=== PATIENT | female | born 1960 | race Caucasian/White ===

== ENCOUNTER 2016-09-13 05:58 | Emergency (ER) | payer BC ==
[2016-09-13 06:03] VITALS: TEMP 97.7
[2016-09-13] MEDS ORDERED: ONDANSETRON 4 MG/2 ML VIAL ONE (06:14)
--- NOTE | 2016-09-13 06:22 | EDPHY ---
H & P Stated Complaint: EPIGASTRIC PAIN WOKE PT, HX OF OFF AND ON FOR MONTHS Time Seen by Provider: 09/13/16 06:08 HPI/ROS: HPI The patient presents with epigastric abdominal pain which began about 1 hour ago and came on suddenly. It is sharp in nature, severe, and improved within about 15 minutes. Is associated with nausea without any vomiting. She now has very little pain. It radiates toward her back. She has not had any fevers or chills, vomiting, diarrhea, dark or bloody stool. She has had episodes of this pain for the last few months, though this seems the most severe. She had a cholecystectomy in 1996 and she says this pain feels similar. She is currently being treated for an ear infection. REVIEW OF SYSTEMS Constitutional: No fever, no chills. Eyes: No discharge. ENT: No sore throat. Cardiovascular: No chest pain, no palpitations. Respiratory: No cough, no shortness of breath. Gastrointestinal: See HPI Genitourinary: No hematuria. Musculoskeletal: No back pain. Skin: No rashes. Neurological: No headache. PMHx: Status post cholecystectomy PHYSICAL General Appearance: Alert, no distress Eyes: Pupils equal and round no pallor or injection ENT, Mouth: Mucous membranes moist Respiratory: There are no retractions, lungs are clear to auscultation Cardiovascular: Regular rate and rhythm Gastrointestinal: Abdomen is soft and with tenderness in epigastrium, no masses , bowel sounds normal Neurological: A&O, moves all extremities Skin: Warm and dry, no rashes Musculoskeletal: Neck is supple non tender Extremities: symmetrical, full range of motion Psychiatric: Patient is oriented X 3, there is no agitation Source: Patient Exam Limitations: No limitations - Personal History Current Tetanus/Diphtheria Vaccine: Yes Current Tetanus Diphtheria and Acellular Pertussis (TDAP): Yes - Medical/Surgical History Hx Asthma: Yes Hx Chronic Respiratory Disease: No Hx Diabetes: No Hx Cardiac Disease: No Hx Renal Disease: No Hx Cirrhosis: No Hx Alcoholism: No Hx HIV/AIDS: No Hx Splenectomy or Spleen Trauma: No Other PMH: GALLBLADDER REMOVED, ASTHMA WITH EXERCISE, HIST. HYPOTHYROID - Social History Smoking Status: Never smoked Constitutional: Initial Vital Signs Temperature (C) 36.5 C 09/13/16 06:00 Heart Rate 70 09/13/16 06:00 Respiratory Rate 16 09/13/16 06:00 Blood Pressure 93/74 L 09/13/16 06:00 O2 Sat (%) 95 09/13/16 06:00 O2 Delivery Mode Room Air Allergies/Adverse Reactions: doxycycline Allergy (Verified 09/13/16 06:03) meperidine [From Demerol] Allergy (Verified 09/13/16 06:03) Home Medications: Medication Instructions Recorded Amoxicillin [Moxatag] 875 mg PO 09/13/16 Codeine Phosphate/Guaifenesin 118 ml PO 09/13/16 [Virtussin AC Liquid] Omeprazole 20 mg PO DAILY #30 capsule. 09/13/16 Thyroid,Pork [[place] Thyroid] 240 mg PO 09/13/16 Medical Decision Making Differential Diagnosis: This is a 56-year-old female status post remote cholecystectomy who presents with epigastric abdominal pain intermittently for the last few months, now worse tonight. On exam, she has normal vital signs and is generally well- appearing. She has tenderness in her epigastrium. She has not had any dark or bloody stools. Differential diagnosis includes gastritis, GERD, less likely pancreatitis or hepatitis, choledocholithiasis. Labs were performed and were unremarkable. The patient is feeling better with no abdominal pain. She did report that she has been taking aspirin over the last few days for her ear pain and this may be contributing to her symptoms. I have advised her to avoid NSAIDs and aspirin. I have discussed avoiding acidic foods. I will discharge her with a prescription for a PPI. - Data Points Laboratory Results: Laboratory Results 09/13/16 06:20 09/13/16 06:20 09/13/16 09/13/16 06:20 06:20 WBC 7.52 10^3/uL 10^3/uL (3.80-9.50) RBC 4.77 10^6/uL 10^6/uL (4.18-5.33) Hgb 15.2 g/dL g/dL (12.6-16.3) Hct 44.6 % % (38.0-47.0) MCV 93.5 fL fL (81.5-99.8) MCH 31.9 pg pg (27.9-34.1) MCHC 34.1 g/dL g/dL (32.4-36.7) RDW 13.3 % % (11.5-15.2) Plt Count 204 10^3/uL 10^3/uL (150-400) MPV 11.4 fL fL (8.7-11.7) Neut % (Auto) 68.5 % % (39.3-74.2) Lymph % (Auto) 19.1 % % (15.0-45.0) [place] % (Auto) 8.1 % % (4.5-13.0) Eos % (Auto) 3.2 % % (0.6-7.6) Baso % (Auto) 0.7 % % (0.3-1.7) Nucleat RBC Rel Count 0.0 % % (0.0-0.2) Absolute Neuts (auto) 5.15 10^3/uL 10^3/uL (1.70-6.50) Absolute Lymphs (auto) 1.44 10^3/uL 10^3/uL (1.00-3.00) Absolute Monos (auto) 0.61 10^3/uL 10^3/uL (0.30-0.80) Absolute Eos (auto) 0.24 10^3/uL 10^3/uL (0.03-0.40) Absolute Basos (auto) 0.05 10^3/uL 10^3/uL (0.02-0.10) Absolute Nucleated RBC 0.00 10^3/uL 10^3/uL (0-0.01) Immature Gran % 0.4 % % (0.0-1.1) Immature Gran # 0.03 10^3/uL 10^3/uL (0.00-0.10) Sodium 139 mEq/L mEq/L (134-144) Potassium 4.4 mEq/L mEq/L (3.5-5.2) Chloride 108 mEq/L mEq/L (97-110) Carbon Dioxide 20 mEq/l L mEq/l (22-31) Anion Gap 11 mEq/L mEq/L (8-16) BUN 12 mg/dL mg/dL (7-23) Creatinine 0.6 mg/dL mg/dL (0.6-1.0) Estimated GFR > 60 Glucose 108 mg/dL H mg/dL (70-100) Calcium 9.3 mg/dL mg/dL (8.5-10.4) Total Bilirubin 0.6 mg/dL mg/dL (0.1-1.4) Conjugated Bilirubin 0.5 mg/dL mg/dL (0.0-0.5) Unconjugated Bilirubin 0.1 mg/dL mg/dL (0.0-1.1) AST 30 IU/L IU/L (14-46) ALT 30 IU/L IU/L (9-52) Alkaline Phosphatase 89 IU/L IU/L (38-126) Total Protein 6.6 g/dL g/dL (6.3-8.2) Albumin 3.8 g/dL g/dL (3.5-5.0) Lipase 106.0 IU/L IU/L (23-300) Departure - Departure Disposition: Home, Routine, Self-Care Clinical Impression: Dyspepsia Condition: Good Instructions: Gastritis (ED), Diet for Stomach Ulcers and Gastritis (ED) Additional Instructions: Please try to eat a bland diet and avoid any spicy, greasy, acidic foods. You should avoid eating anything 2 hours before bedtime. Avoid ibuprofen, Aleve to see if this helps her symptoms. Prescriptions: Omeprazole 20 mg PO DAILY #30 capsule.
[2016-09-13 06:30] LABS: % IMMATURE GRANULYOCYTES 0.4 % (0.0-1.1); ABSOLUTE IMMATURE GRANULOCYTES 0.03 10^3/uL (0.00-0.10); ADD DIFF? NO; ADD MORPH? NO; ADD SCAN? NO; ATYPICAL LYMPHOCYTE FLAG 10 (0-99); FRAGMENT RBC FLAG 0 (0-99); HEMATOCRIT 44.6 % (38.0-47.0); HEMOGLOBIN 15.2 g/dL (12.6-16.3); LEFT SHIFT FLG 0 (0-99); LIPEMIA HEMOLYSIS FLAG 90 (0-99); MEAN CELL HEMOGLOBIN 31.9 pg (27.9-34.1); MEAN CELL HEMOGLOBIN CONCENTR. 34.1 g/dL (32.4-36.7); MEAN CELL VOLUME 93.5 fL (81.5-99.8); MEAN PLATELET VOLUME 11.4 fL (8.7-11.7); PLATELET CLUMPS FLAG 0 (0-99); PLATELET COUNT 204 10^3/uL (150-400); RED BLOOD CELL COUNT 4.77 10^6/uL (4.18-5.33); RED CELL DISTRIBUTION WIDTH 13.3 % (11.5-15.2)
[2016-09-13 06:51] LABS: ALANINE AMINOTRANSFERASE 30 IU/L (9-52); ALBUMIN 3.8 g/dL (3.5-5.0); ALKALINE PHOSPHATASE 89 IU/L (38-126); ANION GAP 11 mEq/L (8-16); ASPARTATE AMINOTRANSFERASE 30 IU/L (14-46); BILIRUBIN,TOTAL 0.6 mg/dL (0.1-1.4); BILIRUBIN-CONJUGATED 0.5 mg/dL (0.0-0.5); BILIRUBIN-UNCONJUGATED 0.1 mg/dL (0.0-1.1); CALCIUM 9.3 mg/dL (8.5-10.4); CARBON DIOXIDE 20 mEq/l (22-31); CHLORIDE 108 mEq/L (97-110); CREATININE 0.6 mg/dL (0.6-1.0); GLOMERULAR FILTRATION RATE > 60; GLUCOSE 108 mg/dL (70-100); POTASSIUM 4.4 mEq/L (3.5-5.2); SODIUM 139 mEq/L (134-144); TOTAL PROTEIN 6.6 g/dL (6.3-8.2)
[2016-09-13 07:19] VITALS: BP 97/57; PULSE 62; RESP 18; O2SAT 91
== END 2016-09-13 07:19 | disposition home or self-care (01) ==
DX: R10.13 Epigastric pain (principal); J45.909 Unspecified asthma, uncomplicated; R11.0 Nausea; Z90.49 Acquired absence of other specified parts of digestive tract
CPT/HCPCS: J2405

== ENCOUNTER 2016-11-18 23:26 | Emergency (ER) | payer OTHER, BC ==
[2016-11-18 23:35] VITALS: TEMP 98.2
[2016-11-18] MEDS ORDERED: TDAP ADULT 0.5 ML INJ (BOOSTRIX) IM ONE (23:49)
[2016-11-18] MEDS ORDERED: IBUPROFEN 600 MG TAB PO ONE ×2 (23:49)
--- NOTE | 2016-11-18 23:52 | EDPHY ---
H & P Time Seen by Provider: 11/18/16 23:33 HPI/ROS: CHIEF COMPLAINT: Right ankle pain HISTORY OF PRESENT ILLNESS: This otherwise healthy 56-year-old female, presents to the emergency department after an inversion ankle injury. The patient complains of pain to the lateral ankle and swelling. The patient has an abrasion to her left knee. She denies knee pain. Tetanus is not up-to-date. Patient is unable to bear weight on this right ankle due to pain. The patient has no other complaints, denies numbness or tingling to affected limb. Smoking Status: Never smoked Physical Exam: General appearance: alert no distress Right ankle: There is swelling, ecchymosis and tenderness over the lateral ankle . TTP to ATFL and distal fibula. No medial tenderness. No tenderness over the achilles tendon. The foot is non-tender without swelling. No TTP over 5th metatarsal. Neurologic exam: The patient has normal sensation and motor function distal to the injury. Vascular exam: Normal pulses and capillary refill in the foot Skin: Superficial abrasion to left knee Constitutional: Initial Vital Signs Temperature (C) 36.8 C 11/18/16 23:31 Heart Rate 57 L 11/18/16 23:31 Respiratory Rate 14 11/18/16 23:31 Blood Pressure 135/80 H 11/18/16 23:31 O2 Sat (%) 94 11/18/16 23:31 O2 Delivery Mode Room Air Allergies/Adverse Reactions: doxycycline Allergy (Verified 09/13/16 06:03) meperidine [From Demerol] Allergy (Verified 09/13/16 06:03) Home Medications: Medication Instructions Recorded Amoxicillin [Moxatag] 875 mg PO 09/13/16 Codeine Phosphate/Guaifenesin 118 ml PO 09/13/16 [Virtussin AC Liquid] Omeprazole 20 mg PO DAILY #30 capsule. 09/13/16 Thyroid,Pork [[place] Thyroid] 240 mg PO 09/13/16 MDM/Departure - MDM Imaging Results: Ankle x-ray independently reviewed by me, lateral soft tissue swelling, no evidence of fracture. Imaging: I viewed and interpreted images myself Medications Given: Discontinued Medications Diphtheria/Tetanus/Acell Pertussis (Boostrix) 0.5 ml IM .ONCE ONE Stop: 11/18/16 23:50 Last Admin: 11/19/16 00:13 Dose: 0.5 ml Ibuprofen (Motrin) 600 mg PO EDNOW ONE Stop: 11/18/16 23:50 Last Admin: 11/19/16 00:08 Dose: 600 mg - Depart Disposition: Home, Routine, Self-Care Clinical Impression: Right ankle sprain Qualifiers: Encounter type: initial encounter Involved ligament of ankle: other ligament Qualified Code(s): S93.491A - Sprain of other ligament of right ankle, initial encounter Abrasion, left knee, initial encounter Qualifiers: Encounter type: initial encounter Qualified Code(s): S80.212A - Abrasion, left knee, initial encounter Condition: Good Instructions: Ankle Sprain (ED), Hydrocodone/Acetaminophen (By mouth) Additional Instructions: Rest, ice, elevate. Use crutches for ambulation. Take 600 mg of ibuprofen every 8 hours with food as needed for pain, take [place] for severe pain. Follow up with orthopedist at 1st available appointment, call Sunday to schedule this. Return to the emergency department for any numbness or tingling to your foot, pain that is not controlled, new symptoms or concerns. Stand Alone Forms: Work Comp Follow Up Referrals: Joe Chen MD [Medical Doctor] - As per Instructions (Orthopedist on-call )
[2016-11-19] MEDS ORDERED: HYDROCOD/APAP 5/325 PREPACK#6 BTL TAKEHOME ONE (00:50)
[2016-11-19 01:20] VITALS: BP 108/68; PULSE 68; RESP 16; O2SAT 96
== END 2016-11-19 01:25 | disposition home or self-care (01) ==
DX: S93.491A Sprain of other ligament of right ankle, initial encounter (principal); S80.212A Abrasion, left knee, initial encounter; Z23 Encounter for immunization; X58.XXXA Exposure to other specified factors, initial encounter
CPT/HCPCS: L4386

== ENCOUNTER 2016-12-01 11:38 | Emergency (ER) | payer OTHER, BC ==
[2016-12-01] MEDS ORDERED: OXYCODONE/APAP 5/325 TAB PO ONE (12:07)
--- NOTE | 2016-12-01 12:43 | EDPHY ---
H & P Stated Complaint: sprained ankle 11/18 in boot now with pain bilat hips back / neck shoulders HPI/ROS: CHIEF COMPLAINT: Multiple areas of pain, fall 2 weeks ago HISTORY OF PRESENT ILLNESS: Patient complains of pain in the upper back, lower neck, shoulders, hips and low back. This is after falling 2 weeks ago while stepping off of a piece of equipment at work. She sustained a sprain to the right ankle to time. She has been in a Torin boot and being seen by a [facility] for worker's Comp, as well as undergoing physical therapy for the ankle. She says all Sunday after physical therapy, she began to have more pain in the upper back, lower neck, shoulders, low back and pelvis. This pain radiates out from the middle of her back. [id number] pain at 1st now severe. No numbness or tingling. No weakness of the lower extremities. No saddle anesthesia. No incontinence of bowel or bladder. No retention of bowel or bladder. She has not yet had imaging of the spine at any level. No other associated complaints or modifying factors. REVIEW OF SYSTEMS: Ten systems reviewed and are negative unless otherwise noted in the HPI PAST MEDICAL HISTORY: hypoThyroid SOCIAL HISTORY: Nonsmoker. Works for [email or web address] FAMILY HISTORY: Noncontributory EXAMINATION General Appearance: Alert, no distress Head: normocephalic, atraumatic Eyes: Pupils equal and round, no conjunctival pallor or injection ENT, Mouth: Mucous membranes moist. Uvula midline. Neck: Normal inspection, supple, non-tender Respiratory: Lungs are clear to auscultation Cardiovascular: Regular rate and rhythm. No murmur. Pulses intact distally. Gastrointestinal: Abdomen is soft and nontender Back: Mild soft tissue tenderness of the lumbar, thoracic and cervical spine. There is no bony tenderness at each level. No crepitus, step-off or deformity. Range of motion is limited due to pain. Neurological: GCS 15. Cranial nerves 2-12 grossly intact. A&O, nonfocal, antalgic but steady gait. Strength is symmetric in all 4 limbs. Patellar reflexes symmetric. Skin: Warm and dry, no rash. No lacerations abrasions or contusions. Extremities: Nontender, no pedal edema Psychiatric: Mood and affect normal DIFFERENTIAL DIAGNOSES: Including but not limited to myofascial strain, sprain, fracture, dislocation, whiplash MDM: 12:05 p.m. Pain in multiple location 2 weeks after a mechanical fall with right ankle sprain. This is most recently exacerbated by physical therapy on Sunday. No evidence of acute cord compression or cauda equina. X-rays have been ordered of the areas of concern. She is in no acute distress 1:20 p.m. X-rays of spine reveal possible fracture of anterior portion of C5. There is no vertebral body fracture or obvious swelling. I re-examined the patient. She has no bony, midline tenderness of the neck. I have ordered an MRI to further delineate. She also has noted a age indeterminate, possible fractures of the endplates of T3 and L3. I have re-examined the patient and she does not have any point bony tenderness of these regions. The tenderness of these regions is muscular. No further imaging has been ordered of the thoracic or lumbar spine at this time. She remains awake and alert, neuro intact. 3:00 p.m. Notified by radiologist Dr. Davies. MRI of the cervical spine reveals no acute findings. The possible fracture noted on the plain film of C5 is not appreciated on the MRI. There is no acute finding otherwise. Furthermore, the MRI was able to visualize T3, and this is a chronic injury. I have re-evaluated the patient. She is resting comfortably with significantly improved pain following the Percocet. She remains neurovascular intact. She is discharged home stable condition. She will follow up with her worker's compensation Clinic. She is comfortable with this plan and discharged home stable condition. SUPERVISION: This patient was independently evaluated without direct examination by the attending physician. Case was discussed with attending physician. Source: Patient Exam Limitations: No limitations - Personal History Current Tetanus/Diphtheria Vaccine: Yes - Medical/Surgical History Hx Asthma: Yes Hx Chronic Respiratory Disease: No Hx Diabetes: No Hx Cardiac Disease: No Hx Renal Disease: No Hx Cirrhosis: No Hx Alcoholism: No Hx HIV/AIDS: No Hx Splenectomy or Spleen Trauma: No Other PMH: GALLBLADDER REMOVED, ASTHMA WITH EXERCISE, HIST. HYPOTHYROID - Social History Smoking Status: Never smoked Constitutional: Initial Vital Signs Temperature (C) 97.5 F 12/01/16 11:43 Heart Rate 64 12/01/16 11:43 Respiratory Rate 18 12/01/16 11:43 Blood Pressure 127/88 H 12/01/16 11:43 O2 Sat (%) 99 12/01/16 11:43 O2 Delivery Mode Room Air Allergies/Adverse Reactions: doxycycline Allergy (Verified 12/01/16 11:43) meperidine [From Demerol] Allergy (Verified 12/01/16 11:43) Home Medications: Medication Instructions Recorded Omeprazole 20 mg PO DAILY #30 capsule. 09/13/16 Thyroid,Pork [[place] Thyroid] 240 mg PO 09/13/16 CYCLOBENZAPRINE HCL [Flexeril] 5 mg PO TIDPRN PRN #15 tab 12/01/16 Estradiol 12/01/16 oxyCODONE HCL/ACETAMINOPHEN 1 each PO Q4-6PRN PRN #14 tablet 12/01/16 [Percocet 5-325 mg Tablet] Medical Decision Making - Diagnostics Imaging Results: Imaging Impressions Cervical Spine X-Ray 12/01/16 12:07 Impression: Indeterminate age small chip (versus degenerative ossification) adjacent to the anterior inferior corner of C5. 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 Also, if there is concern for instability, lateral flexion extension views would be useful. Lumbar Spine X-Ray 12/01/16 12:07 Impression: Minimal L3 compression of unknown age. 2. Thoracic spine, 2 standing views History: Pain post fall 2 weeks ago Comparison: None Findings: Alignment is anatomic. There is a mild superior endplate compression deformity of T3, of unknown age. There is no paraspinal stripe widening. Thoracic disk spaces maintain normal height. No other posttraumatic abnormality is identified. Impression: Indeterminate age T3 compression. Thoracic Spine X-Ray 12/01/16 12:07 Impression: Minimal L3 compression of unknown age. 2. Thoracic spine, 2 standing views History: Pain post fall 2 weeks ago Comparison: None Findings: Alignment is anatomic. There is a mild superior endplate compression deformity of T3, of unknown age. There is no paraspinal stripe widening. Thoracic disk spaces maintain normal height. No other posttraumatic abnormality is identified. Impression: Indeterminate age T3 compression. - Data Points Medications Given: Discontinued Medications Oxycodone/Acetaminophen (Percocet 5/325) 1 tab PO EDNOW ONE Stop: 12/01/16 12:08 Last Admin: 12/01/16 12:12 Dose: 1 tab Departure - Departure Disposition: Home, Routine, Self-Care Clinical Impression: Cervical myofascial strain Qualifiers: Encounter type: initial encounter Qualified Code(s): S16.1XXA - Strain of muscle, fascia and tendon at neck level, initial encounter Low back strain Qualifiers: Encounter type: initial encounter Qualified Code(s): S39.012A - Strain of muscle, fascia and tendon of lower back, initial encounter Condition: Good Instructions: Muscle Strain (ED) Additional Instructions: 1. Medications as discussed as needed 2. Follow up with [facility] for your ongoing worker's compensation care 3. Return to the ER for any worsening back pain, saddle anesthesia, incontinence of bowel or bladder, retention of bowel or bladder, lower extremity weakness, upper extremity weakness Referrals: YEHUDA OLMOS MD [Other] - As per Instructions Stand Alone Forms: Work Comp Follow Up Prescriptions: CYCLOBENZAPRINE HCL [Flexeril] 5 mg PO TIDPRN PRN #15 tab PRN Reason: Spasms oxyCODONE HCL/ACETAMINOPHEN [Percocet 5-325 mg Tablet] 1 each PO Q4-6PRN PRN # 14 tablet PRN Reason: Pain, Breakthrough
[2016-12-01 15:21] VITALS: BP 114/89; PULSE 61; RESP 16; TEMP 97.7; O2SAT 95
== END 2016-12-01 15:21 | disposition home or self-care (01) ==
DX: S16.1XXA Strain of muscle, fascia and tendon at neck level, initial encounter (principal); S39.012A Strain of muscle, fascia and tendon of lower back, initial encounter; J45.909 Unspecified asthma, uncomplicated; W19.XXXA Unspecified fall, initial encounter; Y93.89 Activity, other specified

== ENCOUNTER 2017-08-12 10:31 | Emergency (ER) | payer OTHER, BC ==
--- NOTE | 2017-08-12 12:25 | EDPHY ---
H & P Stated Complaint: increased pain and swelling bilat leg r>l Time Seen by Provider: 08/12/17 12:25 HPI/ROS: CHIEF COMPLAINT: Right knee and leg pain HISTORY OF PRESENT ILLNESS: This is a generally healthy 57-year-old female who underwent surgery on her right ankle on 04/17/2017 (reattachment of ligaments after trauma). She presents today after noting atraumatic swelling of her right leg yesterday the swelling extended from her lower thigh to the mid calf region. She also had some discomfort along the lateral aspect of her right leg extending into the ankle. At 1 point she noted that her right great toe looked "purple". This resolved and has not recurred. She has been taking aspirin and using ice and heat in alternation. The swelling that was present yesterday has diminished but she still notes some swelling of the right knee. She has pain when she tries to flex this knee. REVIEW OF SYSTEMS: A ten point review of systems was performed and is negative with the exception of the items mentioned in the HPI. Past medical history: 1. Reactive airway disease 2. Hypothyroidism Past surgical history: 1. Cholecystectomy 2. Hysterectomy Social history: She is . She works for [employer]. She does not use tobacco products. General Appearance: Alert. Vital signs reviewed. Eyes: Pupils equal and round, no conjunctival injection, no discharge. Anicteric. ENT, Mouth: Mucous membranes are moist, no oropharyngeal erythema or edema. Neck: No lymphadenopathy, supple. Respiratory: Lungs are clear to auscultation; no wheezes, rales, or rhonchi. Cardiovascular: Regular rate and rhythm; no murmur, rub, or gallop. Gastrointestinal: Abdomen is soft and nontender, no masses or organomegaly, bowel sounds normal. Skin: Warm and dry, no rashes on exposed skin, normal color. Back: Nontender to palpation over the thoracolumbar spine. No CVAT. Extremities: Right lower extremity with right knee effusion. She has tenderness with flexion of the right knee to 45 degrees. No ligamentous instability on provocative testing. Full passive range of motion of the right knee. Full active range of motion of the right hip. Neurological: Alert and oriented. Moving all four extremities easily and equally. Sensation is intact over both lower extremities. Psychiatric: Normal affect. - Personal History Current Tetanus/Diphtheria Vaccine: Yes - Medical/Surgical History Hx Asthma: Yes Hx Chronic Respiratory Disease: No Hx Diabetes: No Hx Cardiac Disease: No Hx Renal Disease: No Hx Cirrhosis: No Hx Alcoholism: No Hx HIV/AIDS: No Hx Splenectomy or Spleen Trauma: No Other PMH: GALLBLADDER REMOVED, ASTHMA WITH EXERCISE, HIST. HYPOTHYROID - Social History Smoking Status: Never smoked Constitutional: Initial Vital Signs Temperature (C) 36.6 C 08/12/17 10:37 Heart Rate 74 08/12/17 10:37 Respiratory Rate 18 08/12/17 10:37 Blood Pressure 128/90 H 08/12/17 10:37 O2 Sat (%) 95 08/12/17 10:37 O2 Delivery Mode Room Air Allergies/Adverse Reactions: doxycycline Allergy (Verified 08/12/17 10:36) meperidine [From Demerol] Allergy (Verified 08/12/17 10:36) Home Medications: Medication Instructions Recorded Thyroid,Pork [[place] Thyroid] 240 mg PO 09/13/16 Estradiol 12/01/16 Medical Decision Making ED Course/Re-evaluation: Bilateral lower extremity ultrasounds performed to rule out DVT. These were reported as normal. No evidence of DVT. Also no evidence of Steele cyst or superficial thrombophlebitis. I do not suspect arterial occlusion. Plain film of the knee was obtained. Shows a small suprapatellar knee effusion. No fracture or dislocation. Symptomatic treatment reviewed with the patient. She will follow up with her primary care provider. Danger signs reviewed. Departure - Departure Disposition: Home, Routine, Self-Care Clinical Impression: Knee pain, acute Qualifiers: Laterality: right Qualified Code(s): M25.561 - Pain in right knee Condition: Good Instructions: Knee Pain (ED) Additional Instructions: Continue to ice and elevate your right leg. I suspect that the swelling is related to the sitting that you have been doing at work. You might try ibuprofen, 400 mg every 6-8 hours, for inflammation. Take this instead of aspirin. Follow up with your orthopedist. Referrals: DR MAURICIO [Other] - As per Instructions Stand Alone Forms: Work Excuse
[2017-08-12 14:47] VITALS: BP 121/85
== END 2017-08-12 14:48 | disposition home or self-care (01) ==
DX: M25.561 Pain in right knee (principal); J45.909 Unspecified asthma, uncomplicated